=== PATIENT | male | born 1940 | race African-American/Black ===

== ENCOUNTER 2019-10-17 16:51 | Emergency (ER) | payer MEDICAID, OTHER ==
[~2019-10-17] VITALS: Ht 170.2 cm; Wt 76.2 kg
[2019-10-17 17:29] VITALS: BP 130/80
[2019-10-17] MEDS ORDERED: HYDR-3165 PO (17:38)
[2019-10-17] MEDS ORDERED: DICL50TA4 PO (17:38)
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
[2019-10-17] MEDS ORDERED: HYDROcodone/APAP 7.5/325MG 1 TAB TABLET PO ONE (17:45)
--- NOTE | 2019-10-17 22:22 | RAD ---
EXAM: 3 views left knee DATE: 10/17/2019 5:07 PM INDICATION: Left knee pain, fall COMPARISON: No Prior FINDINGS/ IMPRESSION: 1. Marked osteopenia. Within these constraints, no evidence of acute fracture or dislocation. 2. No joint effusion. 3. Atherosclerotic vascular calcifications are seen. 4. IM nail within the left femur is partially profiled. Electronically signed by: Anuj Wilkinson MD (10/17/2019 10:20 PM) [id number]
--- NOTE | 2019-10-17 22:23 | RAD ---
EXAM: 2 views left femur DATE: 10/17/2019 5:11 PM INDICATION: Fall, left hip, thigh pain COMPARISON: No Prior FINDINGS/ IMPRESSION: 1. IM nail fixation of the left femur in good alignment without definite hardware complication. Within the constraints of osteopenia, no acute fracture or dislocation. 2. Vascular calcifications are seen. Electronically signed by: Anuj Wilkinson MD (10/17/2019 10:21 PM) [id number]
== END 2019-10-17 17:58 | disposition home or self-care (01) ==
LOC: ER 16:51
DX: S80.02XA Contusion of left knee, initial encounter (principal); J44.9 Chronic obstructive pulmonary disease, unspecified; I10 Essential (primary) hypertension; G89.29 Other chronic pain; W18.39XA Other fall on same level, initial encounter; Y93.89 Activity, other specified; Y92.89 Other specified places as the place of occurrence of the external cause; Y99.8 Other external cause status
CPT/HCPCS: 73502; 73562; 99284

== ENCOUNTER 2019-12-09 19:06 | Emergency (ER) | payer OTHER ==
[~2019-12-09] VITALS: Ht 175.3 cm; Wt 64.5 kg
[~2019-12-09 19:06] MED LIST: DICL50TA4 PO; HYDR-3165 PO
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
[2019-12-09 22:00] VITALS: BP 161/85
== END 2019-12-09 22:00 | disposition home or self-care (01) ==
LOC: ER 19:06
DX: M96.831 Postprocedural hemorrhage of a musculoskeletal structure following other procedure (principal); G89.29 Other chronic pain; M54.9 Dorsalgia, unspecified; J44.9 Chronic obstructive pulmonary disease, unspecified; E78.5 Hyperlipidemia, unspecified; I10 Essential (primary) hypertension
CPT/HCPCS: 99282

== ENCOUNTER 2020-05-06 19:23 | Emergency (ER) | payer OTHER, MEDICAID ==
[~2020-05-06] VITALS: Ht 175.3 cm; Wt 64.5 kg
[2020-05-06] MEDS ORDERED: IV NORMAL SALINE 1,000ML 1,000 ML IV ONE (19:45)
[2020-05-06 20:22] LABS: BASO % 1 % (0-3); EOS # 0.2 x10^3/uL (0.0-0.7); EOS % 3 % (0-3); HEMATOCRIT 31.9 % (39.0-53.0); HEMOGLOBIN 10.5 g/dL (13.0-17.5); LYMPH # 1.1 x10^3/uL (1.0-4.8); LYMPH % 17 % (24-48); MEAN CORPUSCULAR HEMOGLOBIN 30 pg (25-35); MEAN CORPUSCULAR HGB CONC 33 g/dL (31-37); MEAN CORPUSCULAR VOLUME 90 fL (79-100); MONO # 0.4 x10^3/uL (0.0-1.1); MONO % 7 % (0-9); NEUT # 4.8 x10^3uL (1.8-7.7); NEUT % 73 % (31-73); PLATELET COUNT 265 x10^3/uL (140-400); RED BLOOD COUNT 3.54 x10^6/uL (4.30-5.70); RED CELL DISTRIBUTION WIDTH 16.1 % (11.5-14.5); WHITE BLOOD COUNT 6.6 x10^3/uL (4.0-11.0)
[2020-05-06 20:29] LABS: CALCIUM 8.9 mg/dL (8.5-10.1); CREATININE 1.8 mg/dL (0.7-1.3); GFR 44.5; POTASSIUM 4.1 mmol/L (3.5-5.1)
--- NOTE | 2020-05-06 20:33 | RAD ---
Exam: CT of abdomen and pelvis without contrast INDICATION: Left flank pain TECHNIQUE: Sequential axial images through the abdomen and pelvis obtained without IV contrast. Sagittal and coronal reformatted images were reconstructed from the axial data and reviewed. Comparisons: None FINDINGS: Heart size is normal. No pericardial effusion. Visualized lung bases are clear. No pleural effusion. Evaluation of solid organs is limited secondary to noncontrast technique. Liver, spleen, pancreas and adrenals are unremarkable. Gallstone noted within the gallbladder which is otherwise unremarkable. There is moderate left-sided hydronephrosis. There is hyperdense filling defect within the mid to distal ureter which measures approximately 6 mm in diameter however extends approximately 2.1 cm in length. There is extensive stranding surrounding the course of the left ureter. Several hypoattenuating and hyperattenuating cystic lesions are noted within the kidneys bilaterally incompletely characterized on this study. Bladder is distended and appears thin-walled. Prostate is not enlarged. Diverticulosis is noted in the descending colon without evidence of acute diverticulitis. Appendix is normal. No free intra-abdominal air or fluid. No obstruction. Abdominal aorta has a normal course and caliber. No enlarged intra-abdominal lymph nodes are identified. No suspicious osseous lesions or acute fractures. IMPRESSION: 1. Moderate left-sided hydronephrosis with a hyperdense filling defect measuring 6 mm in diameter and approximately 2.1 cm in length. This may represent several stones versus hemorrhagic products. Correlate with urinalysis. 2. Numerous renal lesions which are incompletely characterized on this exam. 3. Diverticulosis without evidence of acute diverticulitis. Exposure: One or more of the following in the visualized dose reduction techniques were utilized for this examination: 1. Automated exposure control 2. Adjustment of the MA and/or KV according to patient size 3. Use of iterative of reconstructive technique Electronically signed by: Sidra Burger MD (05/06/2020 8:30 PM) [id number]
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
[2020-05-06 21:01] LABS: ALBUMIN 2.9 g/dL (3.4-5.0); ALBUMIN/GLOBULIN RATIO 0.7 (1.0-1.7); MAGNESIUM 2.2 mg/dL (1.8-2.4); TOTAL BILIRUBIN 0.3 mg/dL (0.2-1.0); TOTAL PROTEIN 7.3 g/dL (6.4-8.2)
[2020-05-06 22:04] VITALS: BP 204/98
[2020-05-06 23:20] LABS: BACTERIA,URINE MANY /HPF (0-FEW); BILIRUBIN,URINE NEG (NEG); CLARITY,URINE HAZY; COLOR,URINE RED; GLUCOSE,URINE NEG (NEG); NITRITE,URINE NEG (NEG); RBC,URINE >40 /HPF (0-2); SQUAMOUS EPITHELIAL CELL,UR FEW /LPF; UROBILINOGEN,URINE 0.2 mg/dL (0.2 mg/dL); WBC,URINE >40 /HPF (0-4)
== END 2020-05-06 23:15 | disposition short-term general hospital (02) ==
LOC: ER 19:23
DX: N13.9 Obstructive and reflux uropathy, unspecified (principal); J44.9 Chronic obstructive pulmonary disease, unspecified; E78.5 Hyperlipidemia, unspecified; I10 Essential (primary) hypertension; G89.29 Other chronic pain; F17.210 Nicotine dependence, cigarettes, uncomplicated
CPT/HCPCS: 36415; 74176; 80053; 81001; 82553; 83605; 83690; 83735; 84484; 85025; 85610; 85730; 87086; 96374; 96376; 99285; J3010; J7030

== ENCOUNTER 2020-08-05 11:00 | Emergency (ER) | payer OTHER, MEDICAID ==
[~2020-08-05] VITALS: Ht 175.3 cm; Wt 59.3 kg
[2020-08-05] MEDS ORDERED: GABAPENTIN 100 MG CAPSULE. PO ONE ×2 (11:30→11:45)
[2020-08-05] MEDS ORDERED: ACETAMINOPHEN 500 MG TABLET PO ONE ×2 (11:30→11:45)
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
--- NOTE | 2020-08-05 12:06 | RAD ---
Supine and upright abdomen 2 views INDICATION: Constipation COMPARISON: Abdomen and pelvis CT without IV contrast of 05/06/2020. FINDINGS: Unremarkable bowel gas pattern with no evidence of free air the upright position. No dilated loops of bowel and no evidence of pneumatosis or portal venous gas. There is interposition of bowel over the right hepatic lobe. Included lung bases are unremarkable. A stimulator in the thoracic spine is presence in the generator overlying the left iliac fossa. Bones notable for dynamic hip screw fixation of the left hip. No pathologic calcifications. No mass effect. Scattered arterial vascular calcifications incidentally noted. IMPRESSION: No acute pathology shown in the abdomen on abdominal radiographs. In particular, no evidence of bowel perforation. Electronically signed by: Cortney Cuadra MD (08/05/2020 12:02 PM) [id number]
[2020-08-05 13:48] LABS: BASO % 1 % (0-3); EOS # 0.2 x10^3/uL (0.0-0.7); EOS % 4 % (0-3); HEMATOCRIT 31.3 % (39.0-53.0); HEMOGLOBIN 10.2 g/dL (13.0-17.5); LYMPH # 0.9 x10^3/uL (1.0-4.8); LYMPH % 19 % (24-48); MEAN CORPUSCULAR HEMOGLOBIN 29 pg (25-35); MEAN CORPUSCULAR HGB CONC 33 g/dL (31-37); MEAN CORPUSCULAR VOLUME 88 fL (79-100); MONO # 0.2 x10^3/uL (0.0-1.1); MONO % 4 % (0-9); NEUT # 3.4 x10^3uL (1.8-7.7); NEUT % 73 % (31-73); PLATELET COUNT 296 x10^3/uL (140-400); RED BLOOD COUNT 3.57 x10^6/uL (4.30-5.70); RED CELL DISTRIBUTION WIDTH 17.1 % (11.5-14.5); WHITE BLOOD COUNT 4.6 x10^3/uL (4.0-11.0)
[2020-08-05 14:02] LABS: CALCIUM 9.2 mg/dL (8.5-10.1); CREATININE 1.4 mg/dL (0.7-1.3); GFR 59.5; POTASSIUM 3.9 mmol/L (3.5-5.1)
[2020-08-05 14:06] LABS: ALBUMIN 3.1 g/dL (3.4-5.0); ALBUMIN/GLOBULIN RATIO 0.7 (1.0-1.7); MAGNESIUM 2.3 mg/dL (1.8-2.4); TOTAL BILIRUBIN 0.3 mg/dL (0.2-1.0); TOTAL PROTEIN 7.7 g/dL (6.4-8.2)
[2020-08-05] MEDS ORDERED: DOCU-109 PO (14:33)
[2020-08-05] MEDS ORDERED: GABA100C81 PO (14:33)
[2020-08-05 15:04] VITALS: BP 147/75
== END 2020-08-05 15:19 | disposition home or self-care (01) ==
LOC: ER 11:00
DX: G57.83 Other specified mononeuropathies of bilateral lower limbs (principal); D64.9 Anemia, unspecified; K59.00 Constipation, unspecified; J44.9 Chronic obstructive pulmonary disease, unspecified; E78.00 Pure hypercholesterolemia, unspecified; I10 Essential (primary) hypertension; G89.29 Other chronic pain; F17.210 Nicotine dependence, cigarettes, uncomplicated; E78.5 Hyperlipidemia, unspecified; K21.9 Gastro-esophageal reflux disease without esophagitis; Z88.1 Allergy status to other antibiotic agents
CPT/HCPCS: 36415; 74019; 80053; 83735; 84100; 84484; 85025; 99285

== ENCOUNTER 2020-09-11 18:02 | Emergency (ER) | payer OTHER, MEDICAID ==
[~2020-09-11] VITALS: Ht 175.3 cm; Wt 59.3 kg
[~2020-09-11 18:02] MED LIST changes: +DOCU-109 PO; +GABA100C81 PO
[2020-09-11 18:08] VITALS: BP 169/70
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
[2020-09-11 18:45] LABS: BASO % 1 % (0-3); EOS # 0.3 x10^3/uL (0.0-0.7); EOS % 7 % (0-3); HEMATOCRIT 31.3 % (39.0-53.0); HEMOGLOBIN 9.9 g/dL (13.0-17.5); LYMPH # 1.7 x10^3/uL (1.0-4.8); LYMPH % 41 % (24-48); MEAN CORPUSCULAR HEMOGLOBIN 28 pg (25-35); MEAN CORPUSCULAR HGB CONC 32 g/dL (31-37); MEAN CORPUSCULAR VOLUME 88 fL (79-100); MONO # 0.2 x10^3/uL (0.0-1.1); MONO % 4 % (0-9); NEUT % 48 % (31-73); PLATELET COUNT 230 x10^3/uL (140-400); RED BLOOD COUNT 3.55 x10^6/uL (4.30-5.70); WHITE BLOOD COUNT 4.2 x10^3/uL (4.0-11.0)
[2020-09-11 18:51] LABS: CALCIUM 8.4 mg/dL (8.5-10.1); CREATININE 1.6 mg/dL (0.7-1.3); POTASSIUM 3.7 mmol/L (3.5-5.1)
[2020-09-11 18:52] LABS: BACTERIA,URINE MANY /HPF (0-FEW); BILIRUBIN,URINE NEG (NEG); CLARITY,URINE CLOUDY; COLOR,URINE YELLOW; GLUCOSE,URINE NEG (NEG); NITRITE,URINE NEG (NEG); SQUAMOUS EPITHELIAL CELL,UR MANY /LPF; UROBILINOGEN,URINE 0.2 mg/dL (0.2 mg/dL)
[2020-09-11 18:56] LABS: ALBUMIN 2.9 g/dL (3.4-5.0); ALBUMIN/GLOBULIN RATIO 0.8 (1.0-1.7); TOTAL BILIRUBIN 0.1 mg/dL (0.2-1.0); TOTAL PROTEIN 6.6 g/dL (6.4-8.2)
--- NOTE | 2020-09-11 19:09 | RAD ---
EXAM: CHEST ONE VIEW. HISTORY: Bradycardia. COMPARISON: None. FINDINGS: A frontal view of the chest is obtained. There are limitations from rotation to the left. Spinal stimulator electrodes are noted. Mild perihilar and basilar interstitial infiltrates may reflect mild pulmonary edema or atypical pneumonia. There is no pneumothorax or pleural effusion. The heart is not enlarged. There are atherosclerotic calcifications of the aorta. IMPRESSION: 1. Mild pulmonary edema versus atypical pneumonia. Electronically signed by: Faith Ashley MD (09/11/2020 7:06 PM) [facility]
--- NOTE | 2020-09-11 19:13 | RAD ---
EXAM: CT HEAD WITHOUT CONTRAST. HISTORY: Altered mental status. Meningioma, renal cancer. TECHNIQUE: Computed tomography of the head was performed without intravenous contrast. One or more of the following individualized dose reduction techniques were utilized for this examination: 1. Automated exposure control. 2. Adjustment of the mA and/or kV according to patient size. 3. Use of iterative reconstruction technique. COMPARISON: None. FINDINGS: There are changes of frontal craniotomy. A mass along the floor of the anterior cranial fossa appears to have been partially resected and measures 3.5 x 1.5 cm transaxially. It appears extend through the cribriform plate into the right greater than left ethmoid air cells. The right ethmoid air cells and the right aspect of the frontal sinus are opacified. There is white matter hypoattenuation throughout the anteroinferior aspects of the frontal lobes. There is no intracranial hemorrhage. There is mild chronic microangiopathic white matter change elsewhere. Prominence of the lateral ventricles and hemispheric sulci indicates mild atrophy. The visualized paranasal sinuses appear clear. The orbits are unremarkable. The temporal bones are unremarkable. The calvarium reveals no suspicious lesions. There are atherosclerotic calcifications of the internal carotid and vertebral arteries. IMPRESSION: 1. No acute intracranial findings. 2. Residual/recurrent mass along the floor of anterior cranial fossa, likely cysts that is post meningioma resection. This extends through the cribriform plate into the right greater than left ethmoid air cells. There is extensive edema or posttreatment change throughout the bifrontal white matter. Comparison with older studies is recommended to confirm stability of this appearance. Electronically signed by: Faith Ashley MD (09/11/2020 7:10 PM) [facility]
[2020-09-11] MEDS ORDERED: ACETAMINOPHEN 500 MG TABLET PO ONE ×2 (19:58→20:00)
--- NOTE | 2020-09-11 22:02 | EKG ---
[address] [address] Test Date: 2020-09-11 Test Time: 18:34:14 Pat Name: LAVERN GUERRERO Department: Room: Gender: M [employer] Supervisor: : 1940 Requested By: SANDY WESTFALL Order Number: [id number] Reading MD: Measurements Intervals [place] Rate: 71 P: 90 VT: 206 QRS: 19 QRSD: 82 T: 37 QT: 384 QTc: 422 Interpretive Statements SINUS RHYTHM NORMAL ECG RI6.02 No previous ECG available for comparison
== END 2020-09-11 20:15 | disposition home or self-care (01) ==
LOC: ER 18:02
DX: R40.0 Somnolence (principal); M79.604 Pain in right leg; M79.605 Pain in left leg; R20.2 Paresthesia of skin; J44.9 Chronic obstructive pulmonary disease, unspecified; E78.00 Pure hypercholesterolemia, unspecified; I10 Essential (primary) hypertension; F17.210 Nicotine dependence, cigarettes, uncomplicated; G89.29 Other chronic pain; Z98.890 Other specified postprocedural states; Z85.9 Personal history of malignant neoplasm, unspecified; Z88.1 Allergy status to other antibiotic agents
CPT/HCPCS: 36415; 70450; 71045; 80053; 81001; 82803; 84484; 85025; 87086; 93005; 99285

== ENCOUNTER 2020-09-24 16:46 | Inpatient (IN) | payer OTHER, MEDICAID ==
[~2020-09-24] VITALS: Ht 175.3 cm; Wt 57.1 kg
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
--- NOTE | 2020-09-24 17:17 | RAD ---
CHEST AP ONLY Clinical indications: COPD. COMPARISON: September 11, 2020. Findings: Mild interstitial thickening or bronchitis is again evident and is unchanged. No new lung infiltrate or pleural effusion or pneumothorax is seen. The heart size, pulmonary vasculature, mediastinum and both luis enrique are stable. Impression: No new radiographic abnormality is seen. Electronically signed by: Ilan Mcconnell MD (09/24/2020 5:14 PM) [id number]
[2020-09-24 17:19] LABS: BASO % 1 % (0-3); EOS # 0.3 x10^3/uL (0.0-0.7); EOS % 8 % (0-3); HEMATOCRIT 33.2 % (39.0-53.0); HEMOGLOBIN 10.7 g/dL (13.0-17.5); LYMPH # 1.4 x10^3/uL (1.0-4.8); LYMPH % 36 % (24-48); MEAN CORPUSCULAR HEMOGLOBIN 28 pg (25-35); MEAN CORPUSCULAR HGB CONC 32 g/dL (31-37); MEAN CORPUSCULAR VOLUME 88 fL (79-100); MONO # 0.2 x10^3/uL (0.0-1.1); MONO % 4 % (0-9); NEUT % 51 % (31-73); PLATELET COUNT 263 x10^3/uL (140-400); RED CELL DISTRIBUTION WIDTH 16.9 % (11.5-14.5); WHITE BLOOD COUNT 3.9 x10^3/uL (4.0-11.0)
[2020-09-24 17:27] LABS: CALCIUM 8.4 mg/dL (8.5-10.1); CREATININE 1.8 mg/dL (0.7-1.3); GFR 44.5; POTASSIUM 4.4 mmol/L (3.5-5.1)
[2020-09-24 17:39] LABS: ALBUMIN/GLOBULIN RATIO 0.8 (1.0-1.7); TOTAL BILIRUBIN 0.2 mg/dL (0.2-1.0); TOTAL PROTEIN 6.8 g/dL (6.4-8.2)
--- NOTE | 2020-09-24 17:40 | EKG ---
[facility] ED [facility] [address] [place] [id number] Test Date: 2020-09-24 Test Time: 16:58:02 Pat Name: LAVERN GUERRERO Department: Room: Gender: M [employer]: : 1940 Requested By: SANDY WESTFALL Order Number: [id number] Reading MD: Measurements Intervals [place] Rate: 82 P: 4 NV: 214 QRS: -17 QRSD: 90 T: 46 QT: 394 QTc: 464 Interpretive Statements SINUS RHYTHM PROLONGED NV INTERVAL LEFTWARD AXIS QRS(T) CONTOUR ABNORMALITY CONSISTENT WITH ANTEROSEPTAL INFARCT AGE UNDETERMINED ABNORMAL ECG RI6.02 No previous ECG available for comparison
--- NOTE | 2020-09-24 18:02 | EKG ---
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
[2020-09-24 20:32] VITALS: BP 173/80
[2020-09-24] MEDS ORDERED: LAMO200T6 PO (21:00)
[2020-09-24] MEDS ORDERED: TIZA4TAB2 PO (21:00)
[2020-09-24] MEDS ORDERED: MEXI150C PO (21:00)
[2020-09-24] MEDS ORDERED: ASPI81TA59 PO (21:00)
[2020-09-24] MEDS ORDERED: AMLO-187 PO (21:00)
[2020-09-24] MEDS ORDERED: EZET10TA20 PO (21:00)
[2020-09-24] MEDS ORDERED: CHOL400C PO (21:00)
[2020-09-24] MEDS ORDERED: CYAN250012 PO (21:00)
[2020-09-24] MEDS ORDERED: FERR325T14 PO (21:00)
[2020-09-24] MEDS ORDERED: DULO60CA6 PO (21:00)
[2020-09-24] MEDS ORDERED: PREG75CA PO (21:00)
[2020-09-24] MEDS ORDERED: PANT40TA6 PO (21:00)
[2020-09-24] MEDS ORDERED: DIAZ5TAB4 PO (21:00)
[2020-09-24] MEDS ORDERED: AMIT50TA PO (21:00)
[2020-09-24] MEDS ORDERED: tiZANidine 4 MG TABLET. PO PRN (21:15)
[2020-09-24] MEDS ORDERED: diazePAM 5 MG TABLET. PO PRN (21:15)
[2020-09-24 22:22] VITALS: BP 147/64
[2020-09-24] MEDS: PREGABALIN 75 MG CAPSULE PO SCH (22:46)
[2020-09-24] MEDS: lamoTRIgine 100 MG TABLET. PO SCH (22:46)
[2020-09-24] MEDS: AMITRIPTYLINE HCL 50 MG TABLET PO SCH (22:46)
[2020-09-24] MEDS: IV DEXTROSE 5 %-0.2 % NACL 1,000 ML IV SCH (22:47)
[2020-09-25 05:53] VITALS: BP 170/75
[2020-09-25] MEDS: IV DEXTROSE 5 %-0.2 % NACL 1,000 ML IV SCH ×2 (08:00→18:00)
[2020-09-25] MEDS: PREGABALIN 75 MG CAPSULE PO SCH ×2 (08:25→20:42)
[2020-09-25] MEDS: lamoTRIgine 100 MG TABLET. PO SCH ×2 (08:25→20:42)
[2020-09-25] MEDS: FERROUS SULFATE 325 MG TABLET. PO SCH (08:25)
[2020-09-25] MEDS: DULoxetine HCL 60 MG CAPSULE.DR PO SCH (08:25)
[2020-09-25] MEDS: PANTOPRAZOLE 40 MG TABLET. PO SCH (08:25)
[2020-09-25] MEDS: ASPIRIN CHEWABLE 81 MG TABLET. PO SCH (08:25)
[2020-09-25] MEDS: EZETIMIBE 10 MG TABLET PO SCH (08:25)
[2020-09-25] MEDS: AMITRIPTYLINE HCL 50 MG TABLET PO SCH (08:33)
[2020-09-25] MEDS ORDERED: amLODIPine BESYLATE 10 MG TABLET PO SCH (09:00)
[2020-09-25] MEDS ORDERED: MEXILETINE 150 MG CAPSULE PO SCH (09:00)
[2020-09-25] MEDS ORDERED: FLU VACC QS 2020-21(6MOS+)/PF 0.5 ML SYRINGE. VAX IM ONE (09:00)
[2020-09-25 09:30] LABS: BASO % 1 % (0-3); EOS # 0.2 x10^3/uL (0.0-0.7); EOS % 6 % (0-3); HEMATOCRIT 27.6 % (39.0-53.0); HEMOGLOBIN 8.8 g/dL (13.0-17.5); LYMPH % 26 % (24-48); MEAN CORPUSCULAR HEMOGLOBIN 28 pg (25-35); MEAN CORPUSCULAR HGB CONC 32 g/dL (31-37); MEAN CORPUSCULAR VOLUME 89 fL (79-100); MONO # 0.2 x10^3/uL (0.0-1.1); MONO % 5 % (0-9); NEUT # 2.5 x10^3uL (1.8-7.7); NEUT % 63 % (31-73); PLATELET COUNT 230 x10^3/uL (140-400); RED CELL DISTRIBUTION WIDTH 16.3 % (11.5-14.5)
[2020-09-25 10:41] VITALS: BP 75/32
[2020-09-25 11:46] VITALS: BP 84/51
[2020-09-25 13:15] VITALS: BP 157/68
[2020-09-25 15:06] LABS: CREATININE 1.6 mg/dL (0.7-1.3); POTASSIUM 3.5 mmol/L (3.5-5.1)
[2020-09-25 15:13] LABS: ALBUMIN 2.6 g/dL (3.4-5.0); ALBUMIN/GLOBULIN RATIO 0.7 (1.0-1.7); TOTAL BILIRUBIN 0.2 mg/dL (0.2-1.0); TOTAL PROTEIN 6.6 g/dL (6.4-8.2)
[2020-09-25 15:55] VITALS: BP 153/68
[2020-09-25 17:06] LABS: BILIRUBIN,URINE NEG (NEG); CLARITY,URINE HAZY; COLOR,URINE YELLOW; GLUCOSE,URINE NEG (NEG); UROBILINOGEN,URINE 0.2 mg/dL (0.2 mg/dL)
[2020-09-25 17:07] LABS: BACTERIA,URINE MANY /HPF (0-FEW); NITRITE,URINE POS (NEG); RBC,URINE 0 /HPF (0-2); WBC,URINE 0 /HPF (0-4)
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
--- NOTE | 2020-09-25 19:05 | RAD ---
CT Head W/O Contrast: History: Reason: recurrent meningioma with unsteady gait and fgalls / Spl. Instructions: / History: Comparison: September 11, 2020 Axial images were obtained without contrast. There is moderate diffuse cerebral and cerebellar atrophy. There is a large area of encephalomalacia inferior frontal lobes consistent prior surgery. There has been large frontal craniotomy. There is dense opacification within the ethmoid air cells on the right and in the right frontal sinus. There is diffuse white matter hypoattenuation especially anteriorly and at the floor of the anterior cranial fossa there is a mass the midline is contiguous with the mass in the ethmoid air cells. There is no midline shift. There is no hydrocephalus or gross bleed. Impression: 1. Prior frontal craniotomy and resection. 2. Mass in the floor of the anterior cranial fossa at the midline which is contiguous with a mass within the ethmoid air cells which is eccentric to the right. 3. Diffuse white matter changes especially anteriorly could be treatment changes. 4. No change from prior study. End impression PQRS Compliance Statement: One or more of the following individualized dose reduction techniques were utilized for this examination: 1. Automated exposure control 2. Adjustment of the mA and/or kV according to patient size 3. Use of iterative reconstruction technique Electronically signed by: Naren Wong III, MD (09/25/2020 7:02 PM) [facility]
[2020-09-25 21:12] VITALS: BP 165/68
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
[2020-09-26] MEDS: IV DEXTROSE 5 %-0.2 % NACL 1,000 ML IV SCH ×2 (04:00→14:00)
[2020-09-26 06:45] VITALS: BP 152/70
[2020-09-26] MEDS: DULoxetine HCL 60 MG CAPSULE.DR PO SCH (08:32)
[2020-09-26] MEDS: PANTOPRAZOLE 40 MG TABLET. PO SCH (08:32)
[2020-09-26] MEDS: EZETIMIBE 10 MG TABLET PO SCH (08:32)
[2020-09-26] MEDS: FERROUS SULFATE 325 MG TABLET. PO SCH (08:32)
[2020-09-26] MEDS: PREGABALIN 75 MG CAPSULE PO SCH ×2 (08:32→20:40)
[2020-09-26] MEDS: lamoTRIgine 100 MG TABLET. PO SCH ×2 (08:32→20:40)
[2020-09-26] MEDS: ASPIRIN CHEWABLE 81 MG TABLET. PO SCH (08:37)
[2020-09-26 10:29] VITALS: BP 162/69
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
[2020-09-26 14:36] VITALS: BP 141/57
[2020-09-26 14:47] LABS: CALCIUM 8.4 mg/dL (8.5-10.1); CREATININE 1.5 mg/dL (0.7-1.3); GFR 54.9
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
[2020-09-26 19:05] VITALS: BP 166/81
[2020-09-26 22:57] VITALS: BP 160/72
[2020-09-27] MEDS: IV DEXTROSE 5 %-0.2 % NACL 1,000 ML IV SCH
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
[2020-09-27 05:00] VITALS: BP 161/67
[2020-09-27 06:31] LABS: ALBUMIN 2.5 g/dL (3.4-5.0); ALBUMIN/GLOBULIN RATIO 0.6 (1.0-1.7); CALCIUM 8.5 mg/dL (8.5-10.1); CREATININE 1.5 mg/dL (0.7-1.3); GFR 54.9; POTASSIUM 4.1 mmol/L (3.5-5.1); TOTAL BILIRUBIN 0.2 mg/dL (0.2-1.0); TOTAL PROTEIN 6.4 g/dL (6.4-8.2)
[2020-09-27 06:37] LABS: HEMATOCRIT 30.3 % (39.0-53.0); HEMOGLOBIN 9.8 g/dL (13.0-17.5); RED BLOOD COUNT 3.46 x10^6/uL (4.30-5.70); RED CELL DISTRIBUTION WIDTH 16.7 % (11.5-14.5); WHITE BLOOD COUNT 5.1 x10^3/uL (4.0-11.0)
[2020-09-27] MEDS: EZETIMIBE 10 MG TABLET PO SCH (08:48)
[2020-09-27] MEDS: FERROUS SULFATE 325 MG TABLET. PO SCH (08:48)
[2020-09-27] MEDS: lamoTRIgine 100 MG TABLET. PO SCH ×2 (08:48→21:00)
[2020-09-27] MEDS: PANTOPRAZOLE 40 MG TABLET. PO SCH (08:48)
[2020-09-27] MEDS: ASPIRIN CHEWABLE 81 MG TABLET. PO SCH (08:48)
[2020-09-27] MEDS: DULoxetine HCL 60 MG CAPSULE.DR PO SCH (08:48)
[2020-09-27] MEDS: PREGABALIN 75 MG CAPSULE PO SCH ×2 (08:49→21:00)
[2020-09-27 10:05] VITALS: BP 162/68
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
[2020-09-27] MEDS: IV DEXTROSE 5% 1,000 ML IV SCH ×2 (13:02→23:53)
[2020-09-27 15:03] VITALS: BP 144/70
[2020-09-27 18:55] VITALS: BP 165/77
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
[2020-09-27] MEDS: DICLOFENAC SODIUM 1% TOPICAL GEL 100GM TUBE. TP SCH (21:00)
[2020-09-27] MEDS ORDERED: amLODIPine BESYLATE 5 MG TABLET PO ONE (22:00)
[2020-09-27 22:53] VITALS: BP 180/83
[2020-09-28 01:09] LABS: HEMOGLOBIN A1C 5.1 % (4.8-5.6)
[2020-09-28 05:10] VITALS: BP 166/74
[2020-09-28 06:51] LABS: CALCIUM 8.6 mg/dL (8.5-10.1); CREATININE 1.4 mg/dL (0.7-1.3); GFR 59.5; POTASSIUM 3.9 mmol/L (3.5-5.1)
[2020-09-28] MEDS: FERROUS SULFATE 325 MG TABLET. PO SCH (08:42)
[2020-09-28] MEDS: lamoTRIgine 100 MG TABLET. PO SCH (08:43)
[2020-09-28] MEDS: ASPIRIN CHEWABLE 81 MG TABLET. PO SCH (08:43)
[2020-09-28] MEDS: PREGABALIN 75 MG CAPSULE PO SCH (08:43)
[2020-09-28] MEDS: PANTOPRAZOLE 40 MG TABLET. PO SCH (08:43)
[2020-09-28] MEDS: DULoxetine HCL 60 MG CAPSULE.DR PO SCH (08:43)
[2020-09-28] MEDS: DICLOFENAC SODIUM 1% TOPICAL GEL 100GM TUBE. TP SCH (08:43)
[2020-09-28] MEDS: EZETIMIBE 10 MG TABLET PO SCH (08:43)
[2020-09-28] MEDS ORDERED: CYANOCOBALAMIN (VITAMIN B-12) 1,000 MCG TABLET. PO SCH (09:00)
[2020-09-28] MEDS ORDERED: CHOLECALCIFEROL (VITAMIN D3) 1,000 UNIT TABLET PO SCH (09:00)
[2020-09-28] MEDS ORDERED: amLODIPine BESYLATE 10 MG TABLET PO SCH (09:00)
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
[2020-09-28 10:46] VITALS: BP 132/50
[2020-09-28 15:16] VITALS: BP 148/64
[2020-09-28] MEDS ORDERED: CEFD300C PO (16:59)
--- NOTE | 2020-09-28 17:06 | DISCH ---
HOME HEALTH DISCHARGE/MEDS DISCHARGE INFORMATION: Discharge Date: Sep 28, 2020 Final Diagnosis: Problems Medical Problems: (1) Dizziness Status: Acute (2) Physical deconditioning Status: Acute (3) Unsteady gait Status: Acute Condition on Discharge: Stable CODE STATUS: Code Status: Full HOME HEALTH: Face to Face: I certify this patient is under my care and that I, or a nurse practitioner or physician's credit control assistant working with me, had a face to face encounter that meets the physician face to face encounter requirements with this patient on 09/28/2020 Medical Condition(s): Other Long-Term For: Assess & Educate Safety Physical Therapy For: Evalulation/Treatment Occupational Therapy For: Evaluation/Treatment POST DISCHARGE ORDERS: Activity Instructions for Disc: Resume previous activity DIET AFTER DISCHARGE: Cardiac CERTIFICATION STATEMENT: Certification Statement: Based on the above finding, I certify that this patient is confined to the home and needs intermittent correction care, physical therapy and/or speech therapy, or continues to need occupational therapy.~ This patient is under my care, and I have initiated the establishment of the plan of care.~ This patient will be followed by myself or a community physician who will periodically review the plan of care. DISCHARGE MEDICATIONS: Home Meds Active Scripts Cefdinir (CEFDINIR) 300 Mg Capsule, 1 CAP PO BID for uti for 7 Days, #14 CAP Prov:GALINDO RAYMOND MD 09/28/20 Reported Medications Cholecalciferol (Vitamin D3) (Vitamin D3) 10 Mcg Capsule, PO DAILY for supplement, CAP 09/24/20 Cyanocobalamin (Vitamin B-12) (Vitamin B12) 2,500 Mcg Tab.chew, PO DAILY for supplement, TAB.CHEW 09/24/20 Aspirin (Children's Aspirin) 81 Mg Tab.chew, 81 MG PO DAILY for heart health, TAB.CHEW 09/24/20 Ezetimibe (ZETIA) 10 Mg Tablet, 10 MG PO DAILY for cholesterol, TAB 09/24/20 Pregabalin (LYRICA) 75 Mg Capsule, 75 MG PO BID for pain, CAP 09/24/20 Amitriptyline Hcl (AMITRIPTYLINE HCL) 50 Mg Tablet, 50 MG PO BID for depression, TAB 09/24/20 Diazepam (DIAZEPAM) 5 Mg Tablet, 5 MG PO PRN Q12HR PRN for ANXIETY, TAB 12/4/20 Ferrous Sulfate (FERROUS SULFATE) 325 Mg Tablet, 325 MG PO DAILY for iron supplement, TAB 09/24/20 Pantoprazole Sodium (PANTOPRAZOLE SODIUM) 40 Mg Tablet.dr, 40 MG PO DAILY for GERD, TAB 09/24/20 Mexiletine Hcl (MEXILETINE HCL) 150 Mg Capsule, 150 MG PO DAILY for antiarrhythmias, CAP 09/24/20 Lamotrigine (LAMOTRIGINE) 200 Mg Tablet, 200 MG PO BID for seizures, TAB 09/24/20 Amlodipine Besylate (AMLODIPINE BESYLATE) 10 Mg Tablet, 10 MG PO DAILY for htn, TAB 09/24/20 Duloxetine Hcl (CYMBALTA) 60 Mg Capsule.dr, 60 MG PO DAILY for depression, CAP 09/24/20 Discontinued Reported Medications Tizanidine Hcl (TIZANIDINE HCL) 4 Mg Tablet, 4 MG PO PRN TID PRN for MUSCLE PAIN, TAB 09/24/20 GALINDO RAYMOND MD Sep 28, 2020 17:06
--- NOTE | 2020-09-28 21:44 | DS ---
DATE OF DISCHARGE: 09/28/2020 HOSPITAL COURSE: The patient is a 79-year-old male patient with a multitude of medical problems, was admitted with altered mental status that according to his started when the neurologist, Dr. Lozano added mexiletine about 2 weeks ago. When they came, the patient was extremely confused, weak. I did hold some of his medication and his level of consciousness has dramatically improved. We did send urine for culture, it grow more than 100,000 colony forming units per mL of gram-negative rods identified as Escherichia coli, sensitive to all cephalosporins. His serum sodium was also high and we started him on D5W and his serum sodium came down to 141. His kidney function was also abnormal and his creatinine came down from 1.8 to 1.4 and has remained stable. A decision was made to discharge him home with home health and to follow with his neurologist and the spinal cord specialist. PHYSICAL EXAMINATION: GENERAL: When I examined him this afternoon, he looked well and was clearly in no apparent respiratory distress, slightly pale, but no jaundice, cyanosis or thyromegaly. No jugular venous distention. No limb edema. VITAL SIGNS: His heart rate was 62, blood pressure was 148/64, temperature was 98, respiratory rate was 18 and oxygen saturation was 96%. HEAD, EYES, EARS, NOSE AND THROAT: Showed normocephalic, atraumatic. NECK: Supple. HEART: Showed normal first and second heart sounds. No gallop, rub or murmur. CHEST: Shows central trachea, equal bilateral chest expansion, air entry, vesicular sounds. No crepitation or rhonchi. ABDOMEN: Distended, soft, nontender. No guarding or rigidity. No organomegaly. All hernial orifices intact. Bowel sounds normal. NEUROLOGIC: He was awake, alert, responding appropriately. All cranial nerves are intact. He moves upper extremities without difficulty. He actually has bilateral braces for both feet and he was able to walk with a walker. His intake over the last 24 hours was 1000, output was 400. LABORATORY DATA: As of this morning, his white cell count was 5000, hemoglobin 10, hematocrit 30, MCV 88 and platelet count 264,000. His chemistry showed a serum sodium 141, potassium 3.9, chloride 105, bicarbonate 30, anion gap of 6, BUN 24, creatinine 1.4. Estimated GFR was 59 mL per minute. His glucose was 102, calcium was 8.6. His urine culture showed growth of more than 100,000 colony forming units per mL of gram-negative rods identified as Escherichia coli sensitive to all antibiotics. DISCHARGE MEDICATIONS: The patient was discharged home with home health to continue on cefdinir 300 mg twice a day for 7 days, amitriptyline 50 mg twice a day, amlodipine 10 mg once a day, aspirin 81 mg once a day, cholecalciferol vitamin D 10 mcg capsule once a day, cyanocobalamin 2500 mcg tablet once a day, diazepam 5 mg every 12 hours, Cymbalta 60 mg daily, Zetia 10 mg once a day, ferrous sulfate 325 mg daily, lamotrigine 200 mg twice a day, mexiletine 150 mg daily, Protonix 40 mg daily, and pregabalin 75 mg twice a day. FINAL DISCHARGE DIAGNOSES: 1. Altered mental status. According to his , started 2 weeks ago after he was started on mexiletine, he became more confused, sleepy and has slurred speech that has definitely improved after we stopped the mexiletine. 2. History of meningioma resected in 2000, recurred again in 2008, treated with chemoradiation and recurred again this year and followed by the neurologist at [facility]. 3. He has renal cell carcinoma, localized. No surgery is indicated yet. 4. Acute on chronic kidney injury, improved. 5. Hypertension. 6. Hyperlipidemia. 7. Chronic obstructive pulmonary disease. 8. Hypernatremia, resolved. 9. Urinary tract infection with growth of more than 100,000 colony forming units per mL of gram-negative rods identified as Escherichia coli, sensitive to all cephalosporins. GALINDO RAYMOND MD DR: TOM/su JOB#: [id number] / [id number]
== END 2020-09-28 17:55 | disposition home health service (06) | DRG 682 ==
LOC: ER 16:46 → 1 SOUTH 18:50
PROVIDERS: ADMIT Internal Medicine; ATTEND Internal Medicine
DX: N17.9 Acute kidney failure, unspecified (principal); G93.41 Metabolic encephalopathy; E87.0 Hyperosmolality and hypernatremia; N39.0 Urinary tract infection, site not specified; E78.00 Pure hypercholesterolemia, unspecified; J44.9 Chronic obstructive pulmonary disease, unspecified; G89.29 Other chronic pain; F17.210 Nicotine dependence, cigarettes, uncomplicated; D50.9 Iron deficiency anemia, unspecified; D72.819 Decreased white blood cell count, unspecified; I12.9 Hypertensive chronic kidney disease with stage 1 through stage 4 chronic kidney disease, or unspecified chronic kidney disease; N18.9 Chronic kidney disease, unspecified; M54.17 Radiculopathy, lumbosacral region; E86.0 Dehydration; B96.20 Unspecified Escherichia coli [E. coli] as the cause of diseases classified elsewhere; E78.5 Hyperlipidemia, unspecified; R29.6 Repeated falls; Z85.528 Personal history of other malignant neoplasm of kidney; Z86.011 Personal history of benign neoplasm of the brain; Z88.1 Allergy status to other antibiotic agents; Z90.5 Acquired absence of kidney; Z82.49 Family history of ischemic heart disease and other diseases of the circulatory system; Z81.8 Family history of other mental and behavioral disorders
CPT/HCPCS: 36415; 70450; 71045; 80048; 80053; 81001; 82947; 83036; 84443; 84484; 85025; 85027; 87077; 87086; 87186; 90471; 90686; 93005; 97116; 97530; 99285-25

== ENCOUNTER 2020-10-29 12:00 | Emergency (ER) | payer OTHER, MEDICAID ==
[~2020-10-29] VITALS: Ht 175.3 cm; Wt 57.1 kg
[~2020-10-29 12:00] MED LIST changes: +AMIT50TA PO; +AMLO-187 PO; +ASPI81TA59 PO; +CEFD300C PO; +CHOL400C PO; +CYAN250012 PO; +DIAZ5TAB4 PO; +DULO60CA6 PO; +EZET10TA20 PO; +FERR325T14 PO; +LAMO200T6 PO; +MEXI150C PO; +PANT40TA6 PO; +PREG75CA PO; +TIZA4TAB2 PO
[2020-10-29 13:00] VITALS: BP 125/73
[2020-10-29] MEDS ORDERED: HYDROcodone/APAP 5/325MG 1 TAB TABLET PO ONE (13:00)
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
== END 2020-10-29 13:40 | disposition home or self-care (01) ==
LOC: ER 12:00
DX: R25.2 Cramp and spasm (principal); J44.9 Chronic obstructive pulmonary disease, unspecified; E78.00 Pure hypercholesterolemia, unspecified; I10 Essential (primary) hypertension; G89.29 Other chronic pain; F17.210 Nicotine dependence, cigarettes, uncomplicated; Z88.1 Allergy status to other antibiotic agents
CPT/HCPCS: 99284

== ENCOUNTER 2020-11-26 06:02 | Emergency (ER) | payer OTHER, MEDICAID ==
[~2020-11-26] VITALS: Ht 175.3 cm; Wt 57.1 kg
[2020-11-26] MEDS ORDERED: CYCLOBENZAPRINE 10 MG TABLET. PO ONE (06:15)
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
[2020-11-26] MEDS ORDERED: HYDROcodone/APAP 5/325MG 1 TAB TABLET PO ONE (06:30)
[2020-11-26] MEDS ORDERED: HYDR-2155 PO (07:22)
[2020-11-26 07:45] VITALS: BP 188/79
== END 2020-11-26 07:50 | disposition short-term general hospital (02) ==
LOC: ER 06:02
DX: M79.605 Pain in left leg (principal); M79.604 Pain in right leg; R25.2 Cramp and spasm; J44.9 Chronic obstructive pulmonary disease, unspecified; E78.00 Pure hypercholesterolemia, unspecified; I10 Essential (primary) hypertension; G89.29 Other chronic pain; F17.210 Nicotine dependence, cigarettes, uncomplicated; Z88.1 Allergy status to other antibiotic agents
CPT/HCPCS: 96372; 99285; J3010; 96374